=== PATIENT | female | born 1970 | race Caucasian/White ===

== ENCOUNTER 2024-07-25 21:37 | Emergency (ER) | payer OTHER, SELFPAY ==
--- NOTE | 2024-07-25 | ECG_ITS ---
Test Reason : DIZZINESS Blood Pressure : */* mmHG Vent. Rate : 68 BPM Atrial Rate : 68 BPM P-R Int : 166 ms QRS Dur : 78 ms QT Int : 392 ms P-R-T Axes : 26 15 58 degrees QTcB Int : 416 ms Normal sinus rhythm Normal ECG No previous ECGs available Referred By: Generic ED Physician Electronically Signed By: Kwabena Evangelista
--- NOTE | ~2024-07-25 | CT_ITS ---
CLINICAL HISTORY: Headache, diplopia, rule out mass effect, stroke CT head without contrast Comparison: None Findings: No intra-axial mass, midline shift, hydrocephalus, or acute hemorrhage. No significant atrophy-like change or white matter disease. The visualized paranasal sinuses and mastoid air cells are normal. The orbits are within normal limits. No skull fracture. IMPRESSION: 1. No acute intracranial findings. This document has been electronically signed by: Coleman Atkinson MD on 07/26/2024 05:22:51
[2024-07-25 21:42] VITALS: BP 145/92; PULSE 102; RESP 20; TEMP 36.9; O2SAT 99; BMI 26.5
[2024-07-25 23:11] LABS: MANUAL DIFF FLAG NO
[2024-07-25 23:12] LABS: Basophils Percent Auto 0.4 % (0-2); Eosinophils Absolute Auto 0.1 X10*3/uL (0.0-0.4); Hematocrit 42.3 % (37.0-47.0); Hemoglobin 14.6 g/dl (12.0-16.0); Imm Gran Abs Auto 0.01 X10*3/uL (0.00-0.03); Imm Gran Pct Auto 0.1 % (0.0-0.4); Lymphocytes Percent Auto 43.7 % (20-40); Mean Corpuscular HGB Conc 34.5 g/dl (31.0-35.0); Mean Corpuscular Hemoglobin 29.2 pg (27.0-33.0); Mean Corpuscular Volume 84.6 fL (80.0-98.0); Mean Platelet Volume 10.1 fL (9.4-12.3); Monocytes Absolute Auto 0.5 X10*3/uL (0.1-1.2); Monocytes Percent Auto 7.7 % (2-11); Neutrophils Absolute Auto 3.2 x10*3/uL (2.0-8.3); Neutrophils Percent Auto 47.1 % (45-73); Platelet Count 228 X10*3/uL (160-400); Red Cell Distribution Width 13.1 % (11.0-16.0); White Blood Count 6.9 X10*3/uL (4.8-10.8)
[2024-07-25 23:26] LABS: Alanine Aminotransferase 43 U/L (0-31); Albumin Level 4.4 g/dL (3.5-5.0); Alkaline Phosphatase 217 U/L (39-117); Anion Gap 16 (12-20); Aspartate Amino Transferase 24 U/L (5-31); Bilirubin Total 0.3 mg/dL (0.0-1.0); Blood Urea Nitrogen 15 mg/dL (9-16); Calcium 9.8 mg/dL (8.4-10.2); Carbon Dioxide 27 mmol/L (22-29); Chloride 109 mmol/L (96-108); Creatinine Clr Calc Pharmacy 111.7; Estimated Glomerular Filt Rate > 60; Glucose Random 93 mg/dL (60-115); Potassium 4.5 mmol/L (3.3-5.1); Sodium 147 mmol/L (135-145); Total Protein 6.9 g/dL (6.5-8.0)
[2024-07-25 23:34] LABS: Troponin-I High Sensitivity < 2.7 ng/L (<3.5-17.0)
[2024-07-26] VITALS: BP 142/74; PULSE 72; RESP 18; TEMP 36.5; O2SAT 100
--- NOTE | 2024-07-26 00:14 | PC.NURSE ---
Pt a&ox4, no signs of distress. Pt reports dizziness with onset of 2wks progressively getting worse, pt reports 4/10 eye pain with light sensitivity, & visual changes Pt denies syncopee, and vomiting. Reports nausea that is now resolved. Plan of care ongoing.
--- NOTE | 2024-07-26 02:43 | ED_ITS ---
HPI - Headache General Chief Complaint: Dizziness Stated Complaint: Dizzy, Virdigo? Time Seen by Provider: 07/26/24 02:18 Source: patient Mode of arrival: ambulatory Limitations: no limitations History of Present Illness ED Provider: Dr. Keaton Heaton HPI Narrative: 54-year-old female with no significant past medical history who presents emergency department for evaluation of lightheadedness, dizziness, headache, nausea, photophobia, diplopia x2 weeks. Patient states that she has had intermittent double vision with puzm-[id number] images as well as pain with movement of her eyes . She states that the pain seems to be worse in the right eye especially if she is looking up. She states that her eyes have felt swollen and watery. The patient did see an councilor and had an eye exam and was diagnosed with binocular diplopia. Patient was also complaining of headache and eye pain and the councilor wanted the patient to follow up with her PCP to get a CAT scan of her brain to rule out other pathology. Patient states that she has also had persistent nausea and significant photophobia which is new. She denied any room spinning dizziness, feeling off balance or difficulty walking except when she is having double vision. Patient states that the double vision does resolve at times and her headache also resolved at times, these symptoms are not constant. Review of systems was negative for fever, chills, rhinorrhea, sore throat, cough, chest pain, shortness of breath, dyspnea on exertion, vomiting, weight loss, weight gain. Patient states she is going through menopause and she gets frequent night sweats. Related Data Previous Rx's ?Medication ?Instructions ?Recorded metoclopramide HCl 10 mg tablet 10 mg PO Q6H PRN nausea and 07/26/24 (Reglan) vomiting #14 tabs Allergies Allergy/AdvReac Type Severity Reaction Status Date / Time No Known Allergies Allergy Verified 07/25/24 21:45 [No Known Allergies*] Review of Systems 2 Review of Systems: Yes all other systems are reviewed and are negative [facility] Past Medical History [facility] Narrative: Social history: She denies tobacco use. She occasionally drinks alcohol. She denies drug use. She is . Social History Social History Smoked in Last 30 Days: No Use of substances other than those prescribed or required for medical reasons: No Advance Directives: No Advance Directives Information Provided: Yes Do you have a plan to hurt others: No Plan Physical Exam 2 Vital Signs: Vital Signs: Last Vital Signs Temp 97.6 F 07/26/24 05:15 Pulse 75 07/26/24 05:15 Resp 16 07/26/24 05:15 BP 119/64 07/26/24 05:15 Pulse Ox 99 07/26/24 05:15 O2 Del Method Room Air 07/26/24 05:15 BMI result Body Mass Index 26.5 Vital signs revealed an elevated blood pressure of 142/72. Exam: General: Awake, alert in no distress, she does have photophobia and needs the lights turned down in order to feel comfortable Head: Normocephalic, atraumatic, no temporal region tenderness Eye exam: Pupils were equal, round, reactive to light, patient's extraocular muscles revealed that the the right eye lags behind the left eye especially with the left lateral testing and the patient does have double vision. Patient also seems to have double vision with looking up with a slight lag and movement of the right eye behind the left eye. The double vision resolves with covering 1 eye. Sclera and conjunctiva were normal. Neck: Supple, no adenopathy Lung: breath sounds symmetric, no wheezing, rales or rhonchi Chest: symmetric movement, nontender Heart: regular rate and rhythm, normal S1, S2 no murmurs or rubs Abdomen: soft, non-tender, nondistended, normal bowel sounds Back: no vertebral tenderness, no CVAT Extremities: no deformities, moves all extremities symmetrically Neuro: General: Awake, alert, oriented, normal speech Cranial nerves: Cranial nerves were intact except for right eye why he behind the left eye with lateral and upward movement Strength: 5/5 symmetric Cerebellar: Good rapid finger movement, normal tjinwf-bw-bujx-to-finger, normal heel to garcía Psych: Pleasant, cooperative Medications Administered Discontinued Medications Generic Name Dose Route Start Last Admin Trade Name Freq PRN Reason Stop Dose Admin Diphenhydramine HCl 50 mg 07/26/24 02:42 07/26/24 03:02 Diphenhydramine Hcl 50 Mg/Ml Vial IVPUSH 07/26/24 02:43 50 mg ONCE STA Administration Sodium Chloride 1,000 mls @ 999 mls/hr 07/26/24 02:47 07/26/24 06:14 Ns IV 07/26/24 03:47 Infused .Q1H1M STA Infusion Ketorolac Tromethamine 15 mg 07/26/24 02:42 07/26/24 03:03 Ketorolac Tromethamine 15 Mg/Ml Vial IVPUSH 07/26/24 02:43 15 mg ONCE STA Administration Metoclopramide HCl 10 mg 07/26/24 02:42 07/26/24 03:03 Metoclopramide Hcl 10 Mg/2 Ml Vial IVPUSH 07/26/24 02:43 10 mg ONCE STA Administration Medical Decision Making Medical Decision Making [facility] Narrative: 54-year-old female with no significant past medical history who presents emergency department for evaluation of lightheadedness, dizziness, headache, nausea, photophobia, diplopia x2 weeks. Patient states that she has had intermittent double vision with xwwl-[id number] images as well as pain with movement of her eyes . She states that the pain seems to be worse in the right eye especially if she is looking up. She states that her eyes have felt swollen and watery. The patient did see an councilor and had an eye exam and was diagnosed with binocular diplopia. Patient was also complaining of headache and eye pain and the councilor wanted the patient to follow up with her PCP to get a CAT scan of her brain to rule out other pathology. Patient states that she has also had persistent nausea and significant photophobia which is new. She denied any room spinning dizziness, feeling off balance or difficulty walking except when she is having double vision. Patient states that the double vision does resolve at times and her headache also resolved at times, these symptoms are not constant. Vital signs revealed an elevated blood pressure otherwise unremarkable. Eye exam did reveal binocular double vision with the right eye lagging behind the left eye with lateral and upward movement. Neurologic exam was otherwise nonfocal with a normal cerebellar exam. She had no tenderness palpation over her temporal regions of her scalp. Review of systems was negative. Differential diagnosis: ?Includes but is not limited to cranial nerve palsy, strabismus, stroke, brain tumor with mass effect, migraine headache, ocular migraine, giant cell arteritis, anemia, electrolyte abnormalities Course: 03:00 My independent interpretation patient's laboratory evaluation is as follows: CBC was normal. Sodium elevated 147, chloride elevated 109. ALT elevated 43, alk-phos elevated to 17. Troponin was below detectable limits. ESR and CRP are pending I did order a CT scan of the patient's brain to rule out mass effect. Patient's symptoms may be secondary to migraine therefore she was treated with Reglan 10 mg IV, Benadryl 50 mg IV and Toradol 15 mg IV. I also ordered normal saline IV x1 L since the patient may be dehydrated given her elevated sodium. 06:38 CT scan of the head without IV contrast did not reveal any acute findings to explain the patient's headaches or diplopia. The patient's photophobia and pain did improve with the above treatment. I did discuss diplopia in the possibility of a small tumor not seen on the CT scan and the need to follow up with a PCP or neurologist to get further evaluation and possible MRI of the brain as an outpatient. The patient he was also advised to follow-up with her councilor to see if they can help with her double vision. Patient's head pain will be treated with the following migraine regimen: Reglan 10 mg, Benadryl 50 mg, Excedrin migraine 2 pills every 6 hours as needed for pain. She was given printed and verbal instructions and discharged home. Admission/Observation Consideration of admission/observation: Escalation of care including admission/observation considered (Yes) Lab Data MDM Lab Attestation statement: I reviewed the patient's lab results. 07/25/24 22:55 07/25/24 22:55 Labs: Lab Results 07/25/24 07/26/24 Range/Units 22:55 03:01 WBC 6.9 (4.8-10.8) X10*3/uL RBC 5.00 (4.20-5.50) X10*6/uL Hgb 14.6 (12.0-16.0) g/dl Hct 42.3 (37.0-47.0) % MCV 84.6 (80.0-98.0) fL MCH 29.2 (27.0-33.0) pg MCHC 34.5 (31.0-35.0) g/dl RDW 13.1 (11.0-16.0) % Plt Count 228 (160-400) X10*3/uL MPV 10.1 (9.4-12.3) fL Immature Gran % (Auto) 0.1 (0.0-0.4) % Neut % (Auto) 47.1 (45-73) % Lymph % (Auto) 43.7 H (20-40) % Meriwether % (Auto) 7.7 (2-11) % Eos % (Auto) 1.0 (0-4) % Baso % (Auto) 0.4 (0-2) % Lymph # (Auto) 3.0 (1.2-4.9) X10*3/uL Meriwether # (Auto) 0.5 (0.1-1.2) X10*3/uL Eos # (Auto) 0.1 (0.0-0.4) X10*3/uL Baso # (Auto) 0.0 (0.0-0.2) X10*3/uL Abs Immat Gran (auto) 0.01 (0.00-0.03) X10*3/uL Absolute Neuts (auto) 3.2 (2.0-8.3) x10*3/uL Absolute Nucleated RBC 0.000 (0.0-0.012) X10*3/uL Nucleated RBC % (auto) 0.0 (0.0-0.2) /100WBC ESR 3 (0-20) MM/HR Sodium 147 H (135-145) mmol/L Potassium 4.5 (3.3-5.1) mmol/L Chloride 109 H (96-108) mmol/L Carbon Dioxide 27 (22-29) mmol/L Anion Gap 16 (12-20) BUN 15 (9-16) mg/dL Creatinine 0.58 (0.5-1.4) mg/dL Estim Creat Clear Calc 111.7 Estimated GFR > 60 Random Glucose 93 (60-115) mg/dL Calcium 9.8 (8.4-10.2) mg/dL Total Bilirubin 0.3 (0.0-1.0) mg/dL AST 24 (5-31) U/L ALT 43 H (0-31) U/L Alkaline Phosphatase 217 H (39-117) U/L Troponin I High Sens < 2.7 (<3.5-17.0) ng/L C-Reactive Protein 0.21 (< or = 0.50) mg/dL Total Protein 6.9 (6.5-8.0) g/dL Albumin 4.4 (3.5-5.0) g/dL Independent Interpretation I performed an independent interpretation of an: EKG Interpretation: My independent interpretation patient's 12 EKG done on 07/25/2024 at 22:59 hours is as follows: Normal sinus rhythm rate of 68, normal ME interval, QRS duration and QTC interval, no ST segment elevation, no ST segment depression, no PACs, no PVCs, no significant T-wave abnormalities, this is a normal EKG. Radiology Impression Discussion of test interpretation with radiology: I have reviewed the radiologist's reading. Radiologist Impression: CT head without contrast Comparison: None Findings: No intra-axial mass, midline shift, hydrocephalus, or acute hemorrhage. No significant atrophy-like change or white matter disease. The visualized paranasal sinuses and mastoid air cells are normal. The orbits are within normal limits. No skull fracture. IMPRESSION: 1. No acute intracranial findings. This document has been electronically signed by: Coleman Atkinson MD on 07/26/2024 05:22:51 Discharge Plan Discharge Clinical Impression: Diplopia, Photophobia, Migraine Patient Disposition: Home, Self-Care Instructions: Migraine Headache (ED), Diplopia (ED) Additional Instructions: Your blood work was unremarkable. This included a normal complete blood count (CBC) and comprehensive metabolic panel (CMP). Your inflammatory markers (ESR and CRP) were also normal which is reassuring. The CT scan of your brain did not reveal any tumors or swelling of the brain to explain your headache or your double vision. The CT scan can miss small tumors of the brain bite usually if these 2 years or causing double vision they also cause defects in your vision. I want you to follow-up with your councilor at [facility] for re- evaluation to see if they can help you with your double vision. I want you also to follow-up with our neurologist, Dr. Sams. Call his office to see if you can make a follow-up appointment with him. I want you to take the following 3 medications together every 6 hours as needed for headache, nausea or vomiting. Reglan (metoclopramide) in 10 mg, 1 pill Benadry (diphenhydramine) 25 mg, 2 pills Excedrin migraine (acetaminophen, aspirin, caffeine), 2 pills. After you take these medications, lie down in a dark quiet room and try to fall asleep. ?These medications will make you sleepy, do not drive or work after taking these medications. Follow-up Dr. Sams's office, call the office next week to see if you can make a follow-up appointment. Also you should try to follow-up with a PCP. Please return to the emergency department if your symptoms get worse or if you develop any symptoms that are concerning to you. Try calling the following numbers to see if you can get a primary care provider to help you with your medical problems. [facility] PCP referral line ?for adult primary care and family practice medicine. [facility] Prescriptions: New metoclopramide HCl [Reglan] 10 mg tablet 10 mg PO Q6H PRN (Reason: nausea and vomiting) Qty: 14 0RF Referrals: Levon Sams MD [Physician] - 1 week (Headache, photophobia, double vision) Print Language: Uruguayan
[2024-07-26 02:54] LABS: C Reactive Protein 0.21 mg/dL (< or = 0.50)
[2024-07-26] MEDS: diphenhydrAMINE HCL 50 MG/ML VIAL IVPUSH (03:02)
[2024-07-26] MEDS: Ketorolac Tromethamine 15 MG/ML VIAL IVPUSH (03:03)
[2024-07-26] MEDS: Metoclopramide HCl 10 MG/2 ML VIAL IVPUSH (03:03)
[2024-07-26] MEDS: 0.9 % Sodium Chloride 1,000 ML 999 ML IV (03:06)
--- NOTE | 2024-07-26 03:09 | PC.NURSE ---
Labs completed and sent Pt medicated per mar Pts at bedside Plan of care ongoing.
--- NOTE | 2024-07-26 03:19 | PC.NURSE ---
Pt with CT Plan of care ongoing.
[2024-07-26 03:44] LABS: Erythrocyte Sedimentation Rate 3 MM/HR (0-20)
[2024-07-26 05:15] VITALS: BP 119/64; PULSE 75; RESP 16; TEMP 36.4; O2SAT 99
[2024-07-26 07:06] VITALS: BP 116/66; PULSE 68; RESP 13; TEMP 36.4; O2SAT 99
[2024-07-26 07:29] VITALS: BP 116/66; PULSE 68; RESP 13; TEMP 36.4; O2SAT 99
== END 2024-07-26 07:30 | disposition home or self-care (01) ==
PROVIDERS: Emergency Provider Emergency Medicine Emergency Medical Services
DX: R42 Dizziness and giddiness (principal); H53.2 Diplopia; H53.143 Visual discomfort, bilateral; G43.909 Migraine, unspecified, not intractable, without status migrainosus; Z79.899 Other long term (current) drug therapy
CPT/HCPCS: 36415; 70450; 80053; 84484; 85025; 85652; 86140; 93005; 99285; J1200; J1885; J2765

== ENCOUNTER → 2024-07-25 22:59 | Outpatient (BNV) | payer OTHER, SELFPAY | PROVIDERS: Emergency Provider Emergency Medicine Emergency Medical Services; Visit Provider Internal Medicine Cardiovascular Disease | DX: R42 Dizziness and giddiness (principal) | CPT/HCPCS: 93010 ==

== ENCOUNTER → 2024-07-26 02:42 | Outpatient (BNV) | payer OTHER, SELFPAY | PROVIDERS: Emergency Provider Emergency Medicine Emergency Medical Services; Visit Provider Radiology Diagnostic Radiology | DX: R51.9 Headache, unspecified (principal); H53.2 Diplopia | CPT/HCPCS: 70450 ==

== ENCOUNTER 2024-11-04 14:36 | Outpatient (AMB) | payer OTHER, SELFPAY ==
--- NOTE | 2024-11-04 14:41 | A.OFFVIS_ITS ---
Vital Signs 3 11/04/24 14:42 Height 5 ft 5 in Weight 162 lb 0.636 oz BMI 27.0 BP 118/50 L Blood Pressure Location Lt brachial Position Sitting Pulse 77 Pulse Source Pulse Oximeter Pulse Oximetry (%) 98 Oxygen Delivery Method Room Air Intake Visit Reasons: Hyperthyroidism Intake Note: New patient present today for Hyperthyroidism office visit. Supervisor Drying And Winding Required: No Accompanied by: Self / Same As Patient Allergies No Known Allergies (No Known Allergies*) Allergy (Verified 11/04/24 14:45) Medication List - Last Reconciled 11/04/24 by Becky Purvis MD HPI Comments Details: 54-year-old female coming in today for initial evaluation of subclinical hyperthyroidism. Labs from PCP office showed that blood work from 10/03/2024 showed suppressed TSH less than 0.005, free T4 normal at 1.4, TPO antibodies elevated at 72. no history of thyroid dysfunction prior to this Endorses heat intolerance for the past couple of years Lost 15 lbs 8 months ago, unexplained , gained most of it back recently, but says used to be 180 lbs Post menopausal since 52 years old Denies anxiety, reports being more irritable Having diplopia, reports teariness, saw eye doctor, said might be some underlying cause Goes more regularly now for bowel movements, so constipation is better Skin is more itchy No hair changes Denies palpitations Reports tremors for many years Patient denies any difficulty swallowing, pain on swallowing or voice changes or difficulty breathing. Patient denies any history of childhood neck radiation. Denies having ever used lithium, amiodarone or biotin supplements. Does take a multivitamin that has some biotin in it. Patient denies any family history of thyroid cancer. Mother has thyroid issues on Synthroid. 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 Lives with , 2 kids and mother Physical exam General: sitting comfortably in no acute distress HEENT: normocephalic/atraumatic, significant tear in his Neck: supple, symmetrical, no thyromegaly , no dorsocervical or supraclavicular fat pads Cardiac: normal heart sounds Pulm: normal breath sounds B/L, no added breath sounds Abd: not distended, no tenderness Extremities: no edema, no signs of myxedema, tremors noted Neuro: AAO x3, Speech: normal, no facial droop, moving all 4 extremities [facility] Medical History (Updated 11/04/24 @ 15:06 by Becky Purvis MD) Hyperthyroidism Family History (Updated 11/04/24 @ 14:48 by NAN Cerrato) Mother Family history of thyroid problem Father Hypertension Diabetes High cholesterol Social History Alcohol intake: current Alcohol intake frequency: holidays/special occasions only Patient Tobacco Use Status: Former Tobacco user Assessment & Plan Assessment & Plan (1) Hyperthyroidism: Code(s): E05.90 - Thyrotoxicosis, unspecified without thyrotoxic crisis or storm Category: Medical Plan: 54-year-old female coming in today for initial evaluation of hyperthyroidism. Labs from PCP office showed that blood work from 10/03/2024 showed suppressed TSH less than 0.005, free T4 normal at 1.4, TPO antibodies elevated at 72. She is quite tremulous, she does have some symptoms that could be concerning for overt overactivity of the thyroid gland. At this point I would like to check antibody levels to evaluate her for autoimmune thyroid disease. She does not have a goiter on exam. However per patient she did have an ultrasound done in October 2024 at [facility] which showed thyroid nodules? We will try to obtain records She does have significant eye symptoms which are very bothersome including TR redness, diplopia. She saw an eye doctor, who suggested possible underlying cause? 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 We will await antibody results. If antibodies are negative, might need thyroid uptake and scan. Plan: -ordered TSH, free T4, total T3, TPO, TSH receptor and TSI antibody levels -obtain records of ultrasound of the thyroid -follow up in 3-4 weeks to discuss results Plan I spent 45 minutes in reviewing the record, seeing the patient and documenting in the medical record. Orders: Orders 2 Thyroid Stimulating Hormone Today E05.90 - Thyrotoxicosis, unspecified without thyrotoxic crisis or storm Triiodothyronine T3 Total Today E05.90 - Thyrotoxicosis, unspecified without thyrotoxic crisis or storm Thyrotropin Receptor Antibody Today E05.90 - Thyrotoxicosis, unspecified without thyrotoxic crisis or storm Free T4 (Free Thyroxine) Today E05.90 - Thyrotoxicosis, unspecified without thyrotoxic crisis or storm Thyroid Peroxidase Antibodies Today E05.90 - Thyrotoxicosis, unspecified without thyrotoxic crisis or storm Thyroid Stimulating Immunoglob Today E05.90 - Thyrotoxicosis, unspecified without thyrotoxic crisis or storm Coding Level of Care Code New Pt Level 4 (38426) Diagnoses Hyperthyroidism E05.90 Time Spent (min) 45
[2024-11-04 14:42] VITALS: BP 118/50; PULSE 77; O2SAT 98; BMI 27.0
--- OUTSIDE RECORDS SUMMARY | 2024-11-04 15:48 | XMS_ITS | Clinical Summary ---
Author Organization [address] Address [address] [place] [address] Phone Care Team Providers Care Operations Advisor Name Role Phone Unavailable Primary Care Provider Unavailabl e Social History Tobacco Use Types Packs/Day Years Used Date Smoking Tobacco: Never Assessed Comments Unknown Sex and Gender Information Value Date Recorded Sex Assigned at Not on file Legal Sex Female 10:13 AM EDT Gender Identity Not on file Sexual Orientation Not on file Plan of Treatment Upcoming Encounters Date Type Department Care Team ([facility] st Contact Info) Description 11/14/2024 9:15 AM EDT Appointment Radiology Department - [address] [phone] Health Maintenance Due Date Last Done Comments Breast Cancer Screening 1971 DTaP,Tdap,and Td Vaccines (1 - Tdap) 1990 Hepatitis B Vaccines (1 of 3 - 19+ 3-dose series) 1990 Cervical Cancer Screening: P ap Smear 1992 Pneumococcal Vaccine: 50+ Ye ars (1 of 1 - PCV) 2021 Zoster Vaccines (1 of 2) 2021 COVID-19 Vaccine (1 - 2023-2 5 season) 2023 Depression Screening 03/05/2024 Colorectal Cancer Screening: Colonoscopy 10/08/2024 HIV Screening 10/08/2024 Hepatitis C Screening 10/08/2024 Social Influencers of Health Screening 10/08/2024 Influenza Vaccine (#1) 2024 HIB Vaccines Aged Out No longer eligi ble based on patient's age to complete this topic HPV Vaccines Aged Out No longer eligi ble based on patient's age to complete this topic Hepatitis A Vaccines Aged Out No long er eligible based on patient's age to complete this topic IPV Vaccines Aged Out No longer eligi ble based on patient's age to complete this topic MMR Vaccines Aged Out No longer eligi ble based on patient's age to complete this topic Meningococcal ACWY Vaccine Aged Out N o longer eligible based on patient's age to complete this topic Meningococcal B Vaccine Aged Out No l onger eligible based on patient's age to complete this topic RSV Immunization Patients Un dayami 20 months Aged Out No longer eligible b ased on patient's age to complete this topic Varicella Vaccines Aged Out No longer eligible based on patient's age to complete this topic
== END 2024-11-04 15:26 | disposition home or self-care (01) ==
LOC: HO.ENCR 14:37
PROVIDERS: PCP Internal Medicine; Visit Provider Student in an Organized Health Care Education/Training Program
DX: E05.90 Thyrotoxicosis, unspecified without thyrotoxic crisis or storm (principal)
CPT/HCPCS: 99204

== ENCOUNTER 2024-11-04 14:36 | Outpatient (REF) | payer OTHER, SELFPAY ==
[2024-11-04 18:23] LABS: Free T4 (Free Thyroxine) 0.95 ng/dL (0.71-1.85); Thyroid Stimulating Hormone < 0.01 uIU/mL (0.32-4.0)
== END 2024-11-04 14:37 | disposition home or self-care (01) ==
LOC: HO.LAB 14:36
PROVIDERS: PCP Internal Medicine; Visit Provider Student in an Organized Health Care Education/Training Program
DX: E05.90 Thyrotoxicosis, unspecified without thyrotoxic crisis or storm (principal); H53.2 Diplopia; Z01.84 Encounter for antibody response examination
CPT/HCPCS: 36415; 83520; 84439; 84443; 84445; 84480; 86376

== ENCOUNTER 2024-11-26 13:44 | Outpatient (AMB) | payer OTHER, SELFPAY ==
[2024-11-26 13:46] VITALS: BP 116/72; PULSE 70; O2SAT 98; BMI 27.2
--- NOTE | 2024-11-26 13:46 | A.OFFVIS_ITS ---
Vital Signs 3 11/26/24 13:46 Height 5 ft 5 in Weight 163 lb 9.328 oz BMI 27.2 BP 116/72 Blood Pressure Location Lt brachial Position Sitting Pulse 70 Pulse Source Pulse Oximeter Pulse Oximetry (%) 98 Oxygen Delivery Method Room Air Intake Visit Reasons: Hyperthyroidism (pedi) Intake Note: Patient present today for Hyperthyroidism. Correction Warden Required: No Accompanied by: Self / Same As Patient Allergies No Known Allergies (No Known Allergies*) Allergy (Verified 11/26/24 13:49) Medication List - Last Reconciled 11/26/24 by Becky Purvis MD No Known Home Meds HPI Comments Details: 54-year-old female coming in today for follow up of subclinical hyperthyroidism. HPI Labs from PCP office showed that blood work from 10/03/2024 showed suppressed TSH less than 0.005, free T4 normal at 1.4, TPO antibodies elevated at 72. no history of thyroid dysfunction prior to this Endorses heat intolerance for the past couple of years Lost 15 lbs 8 months ago, unexplained , gained most of it back recently, but says used to be 180 lbs Post menopausal since 52 years old Denies anxiety, reports being more irritable Having diplopia, reports teariness, saw eye doctor, said might be some underlying cause Goes more regularly now for bowel movements, so constipation is better Skin is more itchy No hair changes Denies palpitations Reports tremors for many years Patient denies any difficulty swallowing, pain on swallowing or voice changes or difficulty breathing. Patient denies any history of childhood neck radiation. Denies having ever used lithium, amiodarone or biotin supplements. Does take a multivitamin that has some biotin in it. Patient denies any family history of thyroid cancer. Mother has thyroid issues on Synthroid. 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 Labs from November 2024 showed TSH less than 0.01, free T4 normal at 0.95, total T3 101, TSI antibodies elevated at 147, elevated TSH receptor antibodies at 2.77, elevated TPO antibodies at 59. Physical exam General: sitting comfortably in no acute distress HEENT: normocephalic/atraumatic, significant teariness Neck: supple, symmetrical, no thyromegaly , no dorsocervical or supraclavicular fat pads Cardiac: normal heart sounds Pulm: normal breath sounds B/L, no added breath sounds Abd: not distended, no tenderness Extremities: no edema, no signs of myxedema, tremors noted Neuro: AAO x3, Speech: normal, no facial droop, moving all 4 extremities Laboratory Tests 07/25/24 11/04/24 22:55 16:11 WBC 6.9 Neut % (Auto) 47.1 Absolute Neuts (auto) 3.2 AST 24 ALT 43 H TSH < 0.01 L Free T4 0.95 Total T3 101 Thyroid Stim Immunoglob 147 H Thyroid Peroxidase Ab 59 H TSH Receptor Ab 2.77 H PFSH Medical History (Updated 11/26/24 @ 14:27 by Becky Purvis MD) Graves disease Hyperthyroidism Family History Mother Family history of thyroid problem Father Hypertension Diabetes High cholesterol Social History Alcohol intake: current Alcohol intake frequency: holidays/special occasions only Patient Tobacco Use Status: Former Tobacco user Physical Exam Vital Signs: Last Vital Signs Pulse 70 11/26/24 13:46 BP 116/72 11/26/24 13:46 Pulse Ox 98 11/26/24 13:46 Oxygen Delivery Method Room Air 11/26/24 13:46 BMI result Body Mass Index 27.2 Assessment & Plan Assessment & Plan (1) Hyperthyroidism: Code(s): E05.90 - Thyrotoxicosis, unspecified without thyrotoxic crisis or storm Category: Medical Plan: 54-year-old female coming in today for follow up of hyperthyroidism. Labs from PCP office showed that blood work from 10/03/2024 showed suppressed TSH less than 0.005, free T4 normal at 1.4, TPO antibodies elevated at 72. She is quite tremulous, she does have some symptoms that could be concerning for overt overactivity of the thyroid gland. Ultrasound from [facility] Radiology records obtained which was done in October 2024 which showed a heterogenous gland with the right lobe bigger than the left, with the right mid lobe 0.6 cm mixed cystic solid isoechoic TR 3 nodule. Labs from November 2024 showed TSH less than 0.01, free T4 normal at 0.95, total T3 101, TSI antibodies elevated at 147, elevated TSH receptor antibodies at 2.77, elevated TPO antibodies at 59. At this point given significant symptoms plus TSH is less than 0.1, we will proceed with treatment and start her on low-dose methimazole especially to see if her symptoms improve. She does have significant eye symptoms which are very bothersome including TR redness, diplopia. Concerning for Graves ophthalmopathy, referral placed to ophthalmology, she has been doing eye appointment with Dr. Garner on 12/01/2024. The following were discussed as potential side effects of methimazole: - Serious skin rashes - nausea, vomiting, or severe hepatic injury - Agranulocytosis: a rare side effect of methimazole involves a severe decrease in the production of white blood cells. This condition is extremely serious, but affects only one out of every 200 to 500 people who take an antithyroid drug. Agranulocytosis more commonly occurs within the first three months of starting treatment with an antithyroid drug, but can occur at any time. If patient develops a fever (temperature above 100.5F), or other signs or symptoms of infection, she should stop taking the tapazole and immediately have a complete blood count (CBC) done. Serious and potentially life threatening infections, or even , can occur before agranulocytosis resolves. However, once the antithyroid drug is stopped, agranulocytosis usually resolves within a week. - Arthralgias, myalgias - Renal: Nephritis - Fever Patient will stop medication and call our office if these occur. She is postmenopausal. Plan: -start methimazole 5 mg daily -ordered TSH, free T4, total T3, to be done in 5 weeks Follow up in 6 weeks -establish care with Ophthalmology for suspected Graves orbitopathy (2) Graves disease: Code(s): E05.00 - Thyrotoxicosis with diffuse goiter without thyrotoxic crisis or storm Category: Medical Plan: See above Plan I spent 30 minutes in reviewing the record, seeing the patient and documenting in the medical record. Orders: Orders 2 Free T4 (Free Thyroxine) 5 Weeks E05. - Thyrotoxicosis, unspecified without thyrotoxic crisis or storm Thyroid Stimulating Hormone 5 Weeks E05. - Thyrotoxicosis, unspecified without thyrotoxic crisis or storm Triiodothyronine T3 Total 5 Weeks E05 - Thyrotoxicosis, unspecified without thyrotoxic crisis or storm Medications: New 2 methimazole 5 mg PO DAILY 30 tabs 2RF Patient Instructions: Start methimazole 5 mg daily Repeat blood work in 5 weeks, orders have been placed this would be end december Follow up January 2025 The following were discussed as potential side effects of methimazole: - Serious skin rashes - nausea, vomiting, or severe hepatic injury - Agranulocytosis: a rare side effect of methimazole involves a severe decrease in the production of white blood cells. This condition is extremely serious, but affects only one out of every 200 to 500 people who take an antithyroid drug. Agranulocytosis more commonly occurs within the first three months of starting treatment with an antithyroid drug, but can occur at any time. If patient develops a fever (temperature above 100.5F), or other signs or symptoms of infection, she should stop taking the tapazole and immediately have a complete blood count (CBC) done. Serious and potentially life threatening infections, or even , can occur before agranulocytosis resolves. However, once the antithyroid drug is stopped, agranulocytosis usually resolves within a week. - Arthralgias, myalgias - Renal: Nephritis - Fever Patient will stop medication and call our office if these occur. see the eye doctor Coding Level of Care Code Est Pt Level 4 (18313) Diagnoses Hyperthyroidism E05.90 Graves disease E05.00 Time Spent (min) 30
--- OUTSIDE RECORDS SUMMARY | 2024-11-26 16:10 | XMS_ITS | Clinical Summary ---
Author Organization [address] Address [address] [place] [address] Phone Care Team Providers Care Clicker Operator Name Role Phone Unavailable Primary Care Provider Unavailabl e Encounters Date Type Department Care Team Description 11/14/2024 8:54 AM EDT - 11/14/2024 11:59 PM EDT Hospital Encounter Radiology Department - [address] [phone] Diplopia; Double vision Discharge Disposition: Home or Self Care from Last 3 Months Social History Tobacco Use Types Packs/Day Years Used Date Smoking Tobacco: Never Assessed Comments Unknown Sex and Gender Information Value Date Recorded Sex Assigned at Not on file Legal Sex Female 10:13 AM EDT Gender Identity Not on file Sexual Orientation Not on file Plan of Treatment Health Maintenance Due Date Last Done Comments Breast Cancer Screening 1971 DTaP,Tdap,and Td Vaccines (1 - Tdap) 1990 Hepatitis B Vaccines (1 of 3 - 19+ 3-dose series) 1990 Cervical Cancer Screening: P ap Smear 1992 Pneumococcal Vaccine: 50+ Ye ars (1 of 1 - PCV) 2021 Zoster Vaccines (1 of 2) 2021 Depression Screening 03/05/2024 Colorectal Cancer Screening: Colonoscopy 10/08/2024 HIV Screening 10/08/2024 Hepatitis C Screening 10/08/2024 Social Influencers of Health Screening 10/08/2024 COVID-19 Vaccine ( - 2023-2 5 season) 2024 Influenza Vaccine (#1) 2024 RSV Immunization Adult Patie nts (1 - 1-dose 75+ series) 2046 HIB Vaccines Aged Out No longer eligi [...] on patient's age to complete this topic Procedures Procedure Name Priority Date/Time Associated Diagnosis Comments MR BRAIN WO CONTRAST Routine 11/14/2024 9:32 AM EDT Diplopia Double vision from Last 3 Months Results * MR Brain wo Contrast (11/14/2024 9:32 AM EDT) Anatomical Region Laterality Modality Head and Neck Magnetic Resonan ce 11/14/2024 12:2 9 PM EDT Impressions 11/14/2024 1:19 PM EDT Impression: 1. Unremarkable MRI of the brain. -------- FINAL REPORT -------- Dictated By: Artis Pollack Dictated Date: 11/14/2024 12:29 ET Assigned Physician: Artis Pollack Reviewed and Electronically Signed By: Artis Pollack Signed Date: 11/14/2024 13:19 ET Workstation ID: [id number] Transcribed By: Self Edit Transcribed Date: 11/14/2024 13:05 ET Narrative 11/14/2024 1:19 PM EDT MRI BRAIN WITHOUT CONTRAST Clinical Statement: sensitivity to light Comparison: None Technique: Multiplanar, multisequence MR images of the brain were obtained without contrast. Findings: There is no evidence of diffusion restriction. The brain parenchyma is within normal limits. Intracranial flow voids are within normal limits. The ventricular system is normal in size and morphology. The basilar cisterns are within normal limits the craniocervical junction is grossly within normal limits. The orbits and globes are within normal limits. Mucoid retention cysts within the maxillary sinuses. Minimal mucosal thickening within the paranasal sinuses. Procedure Note Artis Pollack MD - 11/14/2024 MRI BRAIN WITHOUT CONTRAST Clinical Statement: sensitivity to light Comparison: None Technique: Multiplanar, multisequence MR images of the brain wereobtained without contrast. Findings: There is no evidence of diffusion restriction. The brainparenchyma is within normal limits. Intracranial flow voids are withinnormal limits. The ventricular system is normal in size and morphology.The basilar cisterns are within normal limits the craniocervical junctionis grossly within normal limits. The orbits and globes are within normallimits. Mucoid retention cysts within the maxillary sinuses. Minimalmucosal thickening within the paranasal sinuses. IMPRESSION: Impression: 1. Unremarkable MRI of the brain. -------- FINAL REPORT -------- Dictated By: Artis Pollack Dictated Date: 11/14/2024 12:29 ET Assigned Physician: Artis Pollack Reviewed and Electronically Signed By: Artis Pollack Signed Date: 11/14/2024 13:19 ET Workstation ID: [id number] Transcribed By: Self Edit Transcribed Date: 11/14/2024 13:05 ET Penelope Ruff NP IMG MRI PROCEDURES Final Resul t from Last 3 Months Insurance [employer]
== END 2024-11-26 14:16 | disposition home or self-care (01) ==
LOC: HO.ENCR 13:45
PROVIDERS: PCP Internal Medicine; Visit Provider Student in an Organized Health Care Education/Training Program
DX: E05.90 Thyrotoxicosis, unspecified without thyrotoxic crisis or storm (principal); E05.00 Thyrotoxicosis with diffuse goiter without thyrotoxic crisis or storm
CPT/HCPCS: 99214

== ENCOUNTER 2024-12-30 14:53 | Outpatient (REF) | payer OTHER, SELFPAY ==
[2024-12-30 17:01] LABS: Free T4 (Free Thyroxine) 0.83 ng/dL (0.71-1.85); Thyroid Stimulating Hormone 0.59 uIU/mL (0.32-4.0)
--- OUTSIDE RECORDS SUMMARY | 2024-12-30 19:19 | XMS_ITS | Clinical Summary ---
Author Organization [address] Address [address] [place] [address] Phone Care Team Providers Care Operating System Programmer Name Role Phone Unavailable Primary Care Provider Unavailabl e Encounters Date Type Department Care Team Description 11/14/2024 8:54 AM EDT - 11/14/2024 11:59 PM EDT Hospital Encounter Radiology Department - [address] [phone] Diplopia; Double vision Discharge Disposition: Home or [...] Last Done Comments Breast Cancer Screening 1971 Colorectal Cancer Screening: Colonoscopy 1971 DTaP,Tdap,and Td Vaccines (1 - Tdap) 1990 Hepatitis B Vaccines (1 of 3 - 19+ 3-dose series) 1990 Cervical Cancer Screening: P ap Smear 1992 Pneumococcal Vaccine: 50+ Ye ars (1 of 1 - PCV) 2021 Zoster Vaccines (1 of 2) 2021 Depression Screening 03/05/2024 HIV Screening 10/08/2024 Hepatitis C Screening 10/08/2024 Social Influencers of Health Screening 10/08/2024 COVID-19 Vaccine (1 - 2023-2 5 season) 2024 Influenza Vaccine [...] Signed Date: 11/14/2024 13:19 ET Workstation ID: [id number] Transcribed By: Self Edit Transcribed Date: 11/14/2024 [...] Signed Date: 11/14/2024 13:19 ET Workstation ID: [id number] Transcribed By: Self Edit Transcribed Date: 11/14/2024 13:05 ET Penelope Ruff NP IMG MRI PROCEDURES Final Resul t from Last 3 Months Insurance [employer]
== END 2024-12-30 14:54 | disposition home or self-care (01) ==
LOC: HO.LAB 14:53
PROVIDERS: Student in an Organized Health Care Education/Training Program; PCP Internal Medicine; Visit Provider Student in an Organized Health Care Education/Training Program
DX: E05.90 Thyrotoxicosis, unspecified without thyrotoxic crisis or storm (principal)
CPT/HCPCS: 36415; 84439; 84443; 84480

== ENCOUNTER 2025-02-06 13:39 | Outpatient (AMB) | payer OTHER, SELFPAY ==
--- NOTE | 2025-02-06 13:43 | A.OFFVIS_ITS ---
Vital Signs 3 02/06/25 13:46 Height 5 ft 5 in Weight 165 lb 5.547 oz BMI 27.5 BP 102/80 Blood Pressure Location Rt brachial Position Sitting Pulse 71 Pulse Source Pulse Oximeter Pulse Oximetry (%) 98 Oxygen Delivery Method Room Air Intake Visit Reasons: Hyperparathyroidism Intake Note: Patient presents here today for Hyperparathyroidism follow-up after completion of work-up. Last seen by Dr Yaniv MD * Thyroid Function Laboratory Tests: Completed on 01/05/2025 L [place] Actor Required: No Accompanied by: Self / Same As Patient Allergies No Known Allergies (No Known Allergies*) Allergy (Verified 02/06/25 13:43) HPI Comments Details: 54-year-old female coming in today for follow up of subclinical hyperthyroidism. Last seen by Dr. Purvis on 11/27/2024. This is my 1st time seeing this patient HPI Labs from PCP office showed that blood work from 10/03/2024 showed suppressed TSH less than 0.005, free T4 normal at 1.4, TPO antibodies elevated at 72. no history of thyroid dysfunction prior to this Endorses heat intolerance for the past couple of years Lost 15 lbs 8 months ago, unexplained , gained most of it back recently, but says used to be 180 lbs Post menopausal since 52 years old Denies anxiety, reports being more irritable Having diplopia, reports teariness, saw eye doctor, said might be some underlying cause Goes more regularly now for bowel movements, so constipation is better Skin is more itchy No hair changes Denies palpitations Reports tremors for many years Patient denies any difficulty swallowing, pain on swallowing or voice changes or difficulty breathing. Patient denies any history of childhood neck radiation. Denies having ever used lithium, amiodarone or biotin supplements. Does take a multivitamin that has some biotin in it. Patient denies any family history of thyroid cancer. Mother has thyroid issues on Synthroid. 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 Labs from November 2024 showed TSH less than 0.01, free T4 normal at 0.95, total T3 101, TSI antibodies elevated at 147, elevated TSH receptor antibodies at 2.77, elevated TPO antibodies at 59. Interval history Patient on methimazole 5 mg daily since 11/26/2024 She reports muscle cramps/aches after methimazole, she moticed them 2-3 weeks after starting the medication. She reports that she can tolerate them. SHe takes ibuprofen and that helps with the aches. She is following up with ophthalmology for Graves' ophthalmopathy. She will be [facility] in [facility]. ROS: no palpitations improved anxiety and shaking of hands Not as much hyperdefecation as before Has intermittent hot/cold intolerance, even before the hyperthyroidism was diagnosed Watery eye, double vision, photophobia Physical exam: General: Well appearing. NAD. Neck/Thyroid: Thyroid not palpable, no nodules. Eyes: mild conjunctival injection and clear discharge, mildlid lag and bilateral proptosis CV: RRR, no murmur. No edema. Resp:Lungs clear to auscultation bilaterally Abdomen: Soft, nontender. nondistended Extremities/Neuro: No weakness or tremor of outstretched hands Laboratory Tests 07/25/24 11/04/24 12/30/24 22:55 16:11 15:14 WBC 6.9 Hgb 14.6 Hct 42.3 AST 24 ALT 43 H Alkaline Phosphatase 217 H TSH < 0.01 L 0.59 Free T4 0.95 0.83 Total T3 101 103 Thyroid Stim Immunoglob 147 H Thyroid Peroxidase Ab 59 H TSH Receptor Ab 2.77 H PFSH Medical History Graves disease Hyperthyroidism Surgical History (Updated 02/06/25 @ 13:48 by NAN Alan) Hx of wisdom tooth extraction History of dental surgery Family History Mother Family history of thyroid problem Father Hypertension Diabetes High cholesterol Social History Alcohol intake: current Alcohol intake frequency: holidays/special occasions only Patient Tobacco Use Status: Former Tobacco user Physical Exam Vital Signs: Last Vital Signs Pulse 71 02/06/25 13:46 BP 102/80 02/06/25 13:46 Pulse Ox 98 02/06/25 13:46 Oxygen Delivery Method Room Air 02/06/25 13:46 BMI result Body Mass Index 27.5 Assessment & Plan Assessment & Plan (1) Hyperthyroidism: Code(s): E05.90 - Thyrotoxicosis, unspecified without thyrotoxic crisis or storm Category: Medical Plan: 54-year-old female coming in today for follow up of hyperthyroidism. Labs from PCP office showed that blood work from 10/03/2024 showed suppressed TSH less than 0.005, free T4 normal at 1.4, TPO antibodies elevated at 72. She is quite tremulous, she does have some symptoms that could be concerning for overt overactivity of the thyroid gland. Ultrasound from [facility] Radiology records obtained which was done in October 2024 which showed a heterogenous gland with the right lobe bigger than the left, with the right mid lobe 0.6 cm mixed cystic solid isoechoic TR 3 nodule. Labs from November 2024 showed TSH less than 0.01, free T4 normal at 0.95, total T3 101, TSI antibodies elevated at 147, elevated TSH receptor antibodies at 2.77, elevated TPO antibodies at 59. At this point given significant symptoms plus TSH is less than 0.1, we will proceed with treatment and start her on low-dose methimazole especially to see if her symptoms improve. She does have significant eye symptoms which are very bothersome including TR redness, diplopia. Concerning for Graves ophthalmopathy, referral placed to ophthalmology, she has been doing eye appointment with Dr. Garner on 12/01/2024. Most recent labs WNL TSH 0.59, FT4 0.83, T3 103. Symptoms-mackenzie she reports overall improvement. She is postmenopausal. We discussed that Graves is an autoimmune disease characterized by the production of TSH receptor antibodies, leading to unregulated thyroid hormone production. The natural history includes periods of remission and relapse. With antithyroid drug therapy, about 30-50% of patients may achieve remission after 18-24 months, but recurrences possible especially with younger patients. Definitive therapy (radioactive iodine ablation or thyroidectomy) is considered for those with persistent or relapsing disease, medication intolerance, or patient preference. 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 Orders: Orders 2 Free T4 (Free Thyroxine) Today E05.00 - Thyrotoxicosis with diffuse goiter without thyrotoxic crisis or storm Triiodothyronine T3 Total Today E05.00 - Thyrotoxicosis with diffuse goiter without thyrotoxic crisis or storm TSH reflex Free T4 3 Months E05.00 - Thyrotoxicosis with diffuse goiter without thyrotoxic crisis or storm Patient Instructions: Methimazole: Patient Instructions on Side Effects What is Methimazole? Methimazole is a medication used to treat hyperthyroidism (overactive thyroid). Possible Side Effects: Most people tolerate methimazole well, but side effects can occur. It is important to recognize them early. Common Side Effects: * Mild rash or itching * Upset stomach, nausea, or mild abdominal pain * Headache * Joint or muscle aches * Changes in taste Serious Side Effects (Call the office or seek care immediately): * Fever, sore throat, or mouth sores:?These may be signs of a low white blood cell count (agranulocytosis), which can be serious. * Unusual bruising or bleeding * Yellowing of the skin or eyes (jaundice), dark urine, or severe fatigue:?These may indicate liver problems. * Severe skin rash or blistering * Shortness of breath or chest pain What to Do: * If you develop a fever (over 100.4?F/38?C), sore throat, or mouth sores, stop taking methimazole and contact the office immediately. * Report any signs of liver problems or unusual bruising/bleeding. * For mild side effects (nausea, mild rash), let your provider know at your next visit. Routine Monitoring: * You will need regular blood tests to monitor your blood counts and liver function while on methimazole. When to Seek Emergency Care: * Difficulty breathing, swelling of the face or throat, or severe allergic reaction (anaphylaxis). Contact Information: If you have any questions or experience any of the above symptoms, contact the office at . Coding Level of Care Code Complex visit Add On G2211 Diagnoses Hyperthyroidism E05.90 Graves disease E05.00
[2025-02-06 13:46] VITALS: BP 102/80; PULSE 71; O2SAT 98; BMI 27.5
--- OUTSIDE RECORDS SUMMARY | 2025-02-06 17:53 | XMS_ITS | Clinical Summary ---
Author Organization [address] Address [address] [place] [address] Phone Care Team Providers Care Take Off Worker Name Role Phone Unavailable Primary Care Provider Unavailabl e Encounters Date Type Department Care Team Description 11/14/2024 8:54 AM EDT - 11/14/2024 11:59 PM EDT Hospital Encounter Radiology Department - [address] [phone] Diplopia; Double vision Discharge Disposition: Home or [...] Health Screening 10/08/2024 COVID-19 Vaccine (1 - 2024-2 6 season) 2024 Influenza Vaccine (#1) 2024 RSV [...] Signed Date: 11/14/2024 13:19 ET Workstation ID: [id number] Transcribed By: Self Edit Transcribed Date: 11/14/2024 [...] Signed Date: 11/14/2024 13:19 ET Workstation ID: [id number] Transcribed By: Self Edit Transcribed Date: 11/14/2024 13:05 ET Penelope Ruff NP IMG MRI PROCEDURES Final Resul t from Last 3 Months Insurance [employer]
== END 2025-02-06 14:25 | disposition home or self-care (01) ==
LOC: HO.ENCR 13:40
PROVIDERS: PCP Internal Medicine; Visit Provider Student in an Organized Health Care Education/Training Program
DX: E05.00 Thyrotoxicosis with diffuse goiter without thyrotoxic crisis or storm (principal)
CPT/HCPCS: 99214; G2211